=== PATIENT | female | born 1980 | race Caucasian/White ===

== ENCOUNTER 2022-09-01 10:10 | Emergency (ER) | payer SELFPAY ==
[2022-09-01 10:16] VITALS: BP 126/80; PULSE 128; RESP 20; TEMP 36.7; O2SAT 97
--- NOTE | 2022-09-01 10:29 | ED_ITS ---
HPI - Nausea/Vomiting/Diarrhea General: Chief complaint: Nausea/Vomiting/Diarrhea Stated complaint: n/v/d Time Seen by Provider: 09/01/22 10:24 Source: patient Mode of arrival: ambulatory Limitations: no limitations History of Present Illness: Patient is a nice 42-year-old female presents to ED today with complaint of nausea, vomiting, diarrhea, and abdominal cramping beginning around 4 AM this morning. Patient states her and several members of her family have recently been ill with similar symptoms. She is reporting diffuse body aches. No fevers. No known poor food exposures. She states she has had approximately 5 episodes of nonbloody emesis/nonbloody diarrhea. She states when she vomits she will soil herself with diarrhea. She states abdominal cramping is intermittent and present prior to emesis/defecation but resolves afterwards. MD elicited complaint: nausea, vomiting, diarrhea and abdominal pain Onset (ago): hour(s) Description of diarrhea: watery Associated nausea: Yes Associated abdominal pain: Yes (cramping) Location of pain: Diffuse Pain consistency: intermittent Quality: cramping Relieving factors: none Context: sick contacts Associated symtoms: Reports nausea; Denies change in vision, chest pain, dizziness, dysuria or headache(s) Review of Systems Const: Reports: body aches; Denies: fever(s) or chills Eyes: Denies: change in vision Card: Denies: chest pain Resp: Denies: dyspnea GI: Reports: abdominal pain (cramping; improves after emesis/defecation), n ausea, vomiting, diarrhea and GI cramping; Denies: hematemesis : Denies: flank pain or dysuria Musc: Denies: neck pain, back pain, extremity pain or joint pain Skin/Breast: Denies: rash Neuro: Denies: headache(s) or dizziness Physical Exam Const: COMMON NORMALS: average body habitus, patient oriented x3, no limitations, healthy appearing, alert and well nourished GENERAL APPEARANCE: cooperative and ill appearing ORIENTATION/CONSCIOUSNESS: Yes awake, Yes oriented to person, Yes oriented to place and Yes oriented to time OTHER: was overheard actively vomiting in bathroom; RN alerted me that she had soiled herself with diarrhea in triage HENMT: COMMON NORMALS: normocephalic and atraumatic HEAD & SCALP: normal to inspection, normocephalic and atraumatic Eye: COMMON NORMALS: no scleral icterus Resp: COMMON NORMALS: normal respiratory effort and clear to auscultation bilaterally AUSCULTATION: clear to auscultation bilaterally Cardio: COMMON NORMALS: regular rate and regular rhythm RATE: regular rate RHYTHM: regular rhythm GI: COMMON NORMALS: Normal to inspection, nondistended, normoactive bowel sounds present, Soft to palpation, non-tender, No hepatosplenomegaly present and no masses INSPECTION: Yes normal to inspection AUSCULTATION: Yes Hyperactive bowel sounds present PALPATION: Yes Soft to palpation, No Guarding due to palpation present (GI), No Rigid due to palpation and Yes No hepatosplenomegaly present : COMMON NORMALS: Yes no CVA tenderness BLADDER/KIDNEY EXAM: Yes no CVA tenderness Back/Pelvis: COMMON NORMALS: no CVA tenderness Neuro: GABRIELE COMA SCALE: document GCS findings [place] coma scale eye opening: Spontaneous [place] coma scale verbal response: Orientated [place] coma scale motor response: Obey commands [place] coma scale total score: 15 COMMON NORMALS: patient oriented x3 SENSORIUM/ORIENTATION: Yes alert, Yes oriented to person, Yes oriented to place and Yes oriented to time Skin: COMMON NORMALS: no rashes or lesions noted GENERAL SKIN EXAM: no rashes or lesions noted Course Vital Signs: Vital signs: Vital Signs Temperature 98.0 F 09/01/22 10:16 Pulse Rate 79 09/01/22 11:56 Respiratory Rate 16 09/01/22 11:56 Blood Pressure 102/79 09/01/22 11:56 Pulse Oximetry 97 09/01/22 11:56 Oxygen Delivery Mt thod 09/01/22 11:56 MDM - Nausea/Vomiting/Diarrhea Medical Decision Making History and physical exam consistent with a gastroenteritis. Patient was initially tachycardic upon arrival but this resolved after IV fluids. Her lab work overall is fairly unremarkable. UA was contaminated. She has not had any further episodes of vomiting or diarrhea after my initial assessment. Nausea was controlled prior to discharge. Discussed conservative treatment at home. Return ED precautions given. Differential Diagnosis Likely gastroenteritis Medical Records I reviewed the patient's medical records. Lab Data I reviewed the patient's lab results. 09/01/22 11:12 09/01/22 11:12 Laboratory Results WBC 9.2 10^3/uL (4.0-10.0) 09/01/22 11:12 RBC 4.79 10^6/uL (4.1-5.3) 09/01/22 11:12 Hgb 14.1 g/dL (11.5-15.3) 09/01/22 11:12 Hct 43.5 % (37.0-47.0) 09/01/22 11:12 MCV 90.8 fl (81-99) 09/01/22 11:12 MCH 29.4 pg (28.0-34.0) 09/01/22 11:12 MCHC 32.4 g/dL (30.0-36.0) 09/01/22 11:12 RDW 13.2 % (12.1-15.1) 09/01/22 11:12 Plt Count 264 10^3/cmm (130-400) 09/01/22 11:12 MPV 10.0 fL (7.4-10.4) 09/01/22 11:12 Neut % (Auto) 92.2 % 09/01/22 11:12 Lymph % (Auto) 3.7 % 09/01/22 11:12 Pepin % (Auto) 3.2 % 09/01/22 11:12 Eos % (Auto) 0.7 % 09/01/22 11:12 Baso % (Auto) 0.0 % 09/01/22 11:12 Neut # (Auto) 8.47 10^3/uL (1.8-7.7) H 09/01/22 11:12 Lymph # (Auto) 0.3 10^3/uL (0.8-4.8) L 09/01/22 11:12 Pepin # (Auto) 0.3 10^3/uL (0.2-0.9) 09/01/22 11:12 Eos # (Auto) 0.1 10^3/uL (0.0-0.8) 09/01/22 11:12 Baso # (Auto) 0.0 10^3/uL (0.0-0.1) 09/01/22 11:12 Nucleated RBC % (auto) 0 % 09/01/22 11:12 Nucleated RBCs # 0.0 /100WBC 09/01/22 11:12 Sodium 133 mmol/L (136-145) L 09/01/22 11:12 Potassium 4.4 mmol/L (3.5-5.1) 09/01/22 11:12 Chloride 102 mmol/L (98-107) 09/01/22 11:12 Carbon Dioxide 21 mmol/L (22-29) L 09/01/22 11:12 Anion Gap 14.4 (5-19) 09/01/22 11:12 BUN 9 mg/dL (6-20) 09/01/22 11:12 Creatinine 0.9 mg/dL (0.5-0.9) 09/01/22 11:12 GFR Calculation 69.3 mL/min (90-130) L 09/01/22 11:12 Glucose 112 mg/dL (65-115) 09/01/22 11:12 Calculated Osmolality 275 mOsm/kg (285-295) L 09/01/22 11:12 Calcium 8.7 mg/dL (8.5-10.5) 09/01/22 11:12 Total Bilirubin 0.4 mg/dL (0.15-1.2) 09/01/22 11:12 AST 13 U/L (0-32) 09/01/22 11:12 ALT 12 U/L (0-33) 09/01/22 11:12 Alkaline Phosphatase 78 U/L (35-105) 09/01/22 11:12 Total Protein 7.0 g/dL (6.6-8.7) 09/01/22 11:12 Albumin 3.9 g/dL (3.5-5.2) 09/01/22 11:12 Globulin 3.1 g/dL (1.3-4.6) 09/01/22 11:12 Lipase 26 U/L (13-60) 09/01/22 11:12 Urine Color Yellow (Yellow) 09/01/22 11:50 Urine Appearance Cloudy (CLEAR) A 09/01/22 11:50 Urine pH 8 (5-7) H 09/01/22 11:50 Ur Specific [place] 1.010 (1.005-1.030) 09/01/22 11:50 Urine Protein Neg (Negative) 09/01/22 11:50 Urine Glucose (UA) Norm (Normal) 09/01/22 11:50 Urine Ketones Negative (Negative) 09/01/22 11:50 Urine Blood Neg (Negative) 09/01/22 11:50 Urine Nitrate Negative (Negative) 09/01/22 11:50 Urine Bilirubin Neg (Negative) 09/01/22 11:50 Prot Sulfosalicylic Acd Negative (Negative) 09/01/22 11:50 Urine Urobilinogen Norm mg/dL (Negative) 09/01/22 11:50 Ur Leukocyte Esterase Negative (Negative) 09/01/22 11:50 Urine RBC None /hpf (0-2) 09/01/22 11:50 Urine WBC 5-10 /hpf (0-5) H 09/01/22 11:50 Ur Squamous Epith Cells 15-25 /hpf (0-5) H 09/01/22 11:50 Amorphous Sediment Not Reportable 09/01/22 11:50 Urine Bacteria 2+ /hpf (NONE) H 09/01/22 11:50 Urine Mucus 1+ /hpf 09/01/22 11:50 Discharge Plan Discharge Patient Disposition: Home Clinical Impression: Gastroenteritis Condition: Stable Prescriptions: New promethazine 50 mg tablet 50 mg PO TID PRN (Reason: nausea and vomiting) Qty: 10 0RF Discharge Orders: Discharge ED (Routine); Ordered 09/01/22 Ordered By: Meghan Drummond Patient Instructions: Gastroenteritis (DC), Acute Nausea and Vomiting (DC) Stand Alone Forms: Work/School Release Coding Level of Care Code 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
[2022-09-01] MEDS: ondansetron 2 mg/ML SDV 2 mL 4 MG IVP (11:21)
[2022-09-01] MEDS: sodium chloride 0.9% 1,000 ML 999 ML IV (11:21)
[2022-09-01 11:29] LABS: Eosinophils # 0.1 10^3/uL (0.0-0.8); Eosinophils % 0.7 %; Hematocrit 43.5 % (37.0-47.0); Hemoglobin 14.1 g/dL (11.5-15.3); Lymphocytes # 0.3 10^3/uL (0.8-4.8); Lymphocytes % 3.7 %; Mean Corpuscular HGB Conc 32.4 g/dL (30.0-36.0); Mean Corpuscular Hemoglobin 29.4 pg (28.0-34.0); Mean Corpuscular Volume 90.8 fl (81-99); Monocytes # 0.3 10^3/uL (0.2-0.9); Monocytes % 3.2 %; Neutrophils # 8.47 10^3/uL (1.8-7.7); Neutrophils % 92.2 %; Nucleated Red Blood Cells % 0 %; Platelet Count 264 10^3/cmm (130-400); Red Blood Count 4.79 10^6/uL (4.1-5.3); Red Cell Distribution Width 13.2 % (12.1-15.1); White Blood Count 9.2 10^3/uL (4.0-10.0)
[2022-09-01 11:46] LABS: Alanine Aminotransferase 12 U/L (0-33); Albumin Level 3.9 g/dL (3.5-5.2); Alkaline Phosphatase 78 U/L (35-105); Anion Gap 14.4 (5-19); Aspartate Amino Transferase 13 U/L (0-32); Blood Urea Nitrogen 9 mg/dL (6-20); Calcium 8.7 mg/dL (8.5-10.5); Carbon Dioxide 21 mmol/L (22-29); Chloride 102 mmol/L (98-107); Globulin 3.1 g/dL (1.3-4.6); Glomerular Filtration Rate 69.3 mL/min (90-130); Glucose 112 mg/dL (65-115); Lipase 26 U/L (13-60); Osmolality Calculated 275 mOsm/kg (285-295); Potassium 4.4 mmol/L (3.5-5.1); Sodium 133 mmol/L (136-145); Total Bilirubin 0.4 mg/dL (0.15-1.2)
[2022-09-01 11:47] VITALS: BP 102/74; PULSE 72; RESP 16; O2SAT 95
[2022-09-01 11:56] VITALS: BP 102/79; PULSE 79; RESP 16; O2SAT 97
[2022-09-01] MEDS: metoclopramide 5 mg/mL SDV 2 mL 10 MG IVP (11:59)
[2022-09-01 12:14] LABS: Add Urine Microscopic? YES; Bilirubin Urine Neg (Negative); Blood Urine Neg (Negative); Glucose Urine UA Norm (Normal); Ketones Urine Negative (Negative); Leukocyte Esterase Urine Negative (Negative); Nitrate Urine Negative (Negative); Protein Urine Neg (Negative); Sulfosalicylic Acid Urine Negative (Negative); Urine Appearance Cloudy (CLEAR); Urine Color Yellow (Yellow); Urobilinogen Urine Norm (Negative); pH Urine 8 (5-7)
[2022-09-01 12:15] LABS: Add Urine Culture? No; Bacteria Urine 2+ /hpf; Mucus Urine 1+ /hpf; Squamous Epithelial Cell Urine 15-25 /hpf (0-5)
[2022-09-01] MEDS: promethazine 25 mg/mL SDV 1 mL 50 MG IM (12:47)
--- NOTE | 2022-09-05 14:59 | DCPLANNER ---
piping manager called patient due to no primary care physician - patient declines at this time
== END 2022-09-01 12:54 | disposition home or self-care (01) ==
PROVIDERS: Emergency Provider Physician Assistant
DX: K52.9 Noninfective gastroenteritis and colitis, unspecified (principal)
CPT/HCPCS: 80053; 81001; 83690; 85025; 96372; 96374; 96375; 99284; J2405; J2550; J2765; J7030

== ENCOUNTER 2023-03-04 13:04 | Emergency (ER) | payer SELFPAY ==
--- NOTE | 2023-03-04 13:05 | XRR_ITS ---
PROCEDURE INFORMATION: Exam: XR Chest Exam date and time: 03/04/2023 1:23 PM Age: 42 years old Clinical indication: Cough and fever TECHNIQUE: Imaging protocol: Radiologic exam of the chest. Views: 1 view. COMPARISON: No relevant prior studies available. FINDINGS: Lungs: Unremarkable. No consolidation. Pleural spaces: Unremarkable. No pleural effusion. No pneumothorax. Heart/Mediastinum: Unremarkable. No cardiomegaly. Bones/joints: Unremarkable. XR/XR chest 1V portable [id number] IMPRESSION: No acute findings.
[2023-03-04 13:12] VITALS: BP 134/84; PULSE 91; RESP 18; TEMP 36.7; O2SAT 97; BMI 34.9
[2023-03-04 13:23] VITALS: O2SAT 97
--- NOTE | 2023-03-04 13:31 | W.ED.URI ---
HPI - URI/Sore Throat General: Chief Complaint: COVID symptoms Stated Complaint: fever/body aches/chest congestion Time Seen by Provider: 03/04/23 13:08 Source: patient and family Mode of arrival: ambulatory Limitations: no limitations History of Present Illness: Patient is a 42-year-old female presents to ED today with a complaint of subjective fevers, chills, body aches, scratchy throat , nasal/chest congestion, and cough. Symptoms started yesterday. No known sick contacts. She is not having any significant shortness of breath/difficulty breathing or chest pain. Denies abdominal pain, nausea, vomiting, diarrhea. She arrives with stable vital signs. MD elicited complaint: fever (subjective), cough, sore throat, nasal congestion and sinus pain Onset (ago): day(s) (yesterday) Consistency: constant Severity: moderate Description of mucous: clear Able to tolerate fluids by mouth: Yes Relieving factors: nothing Associated symptoms: Reports chills, congestion, cough, fever(s), myalgias, nasal congestion, sinus pain and sore throat; Deny abdominal pain, chest pain, diarrhea, ear or mastoid pain, headache(s), nausea or vomiting Treatments prior to arrival: none Review of Systems Const: Reports: fever(s), chills and body aches; Denies: change in appetite, change in weight, fatigue or malaise Eyes: Denies: change in vision, blurry vision, photophobia, eye discomfort, eye discharge, floaters or seeing flashes ENMT: Reports: throat pain, odynophagia, nasal discharge, nasal congestion and sinus pain; Denies: ear or mastoid pain Card: Denies: chest pain, palpitations, irregular heart rhythm, edema, lightheadedness, syncope or pre-syncope Resp: Reports: non-productive cough, pain on inspiration and chest congestion; Denies: wheezing or hemoptysis GI: Denies: abdominal pain, nausea, vomiting or diarrhea Musc: Denies: neck pain, back pain, extremity pain or joint pain Skin/Breast: Denies: rash Neuro: Denies: headache(s), numbness in extremities, weakness in extremities, sensory changes or dizziness [facility] ED PFSH: Medical History (Updated 03/04/23 @ 14:49 by RENETTA Alvarez) Psychiatric care Physical Exam Const: COMMON NORMALS: no acute distress, average body habitus, patient oriented x3, no limitations, healthy appearing, alert and well nourished GENERAL APPEARANCE: cooperative ORIENTATION/CONSCIOUSNESS: Yes awake, Yes oriented to person, Yes oriented to place and Yes oriented to time HENMT: COMMON NORMALS: normocephalic, atraumatic, hearing grossly normal bilaterally, external ears normal, EAC's normal, TM's normal bilaterally, Normal external nose present, Normal nasal mucous membranes and turbinates present, moist oral mucous membranes and oropharynx normal HEAD & SCALP: normal to inspection, normocephalic and atraumatic FACE & SINUS: normal facial exam and sinus tenderness NOSE: Normal external nose present and Normal nasal mucous membranes and turbinates present EXTERNAL EAR: Yes external ears normal EXTERNAL AUDITORY CANAL: EAC's normal TYMPANIC MEMBRANE: TM's normal bilaterally MOUTH: Normal oral and palatal mucosa present, lip normal and tongue normal THROAT: posterior oropharynx normal, tonsils normal and uvula midline Eye: COMMON NORMALS: Equal, round and reactive pupils present, EOMs intact bilaterally and conjunctivae normal GENERAL EYE: appearance normal, both eyes and all related structures CONJUNCTIVA: Yes conjunctivae normal PUPIL: Yes Equal, round and reactive pupils present Neck/C-Spine: COMMON NORMALS: full ROM, no lymphadenopathy, no meningeal signs and no JVD Chest: COMMONS NORMALS: normal inspection of the chest and normal palpation of entire chest wall Resp: COMMON NORMALS: normal respiratory effort and clear to auscultation bilaterally AUSCULTATION: clear to auscultation bilaterally Cardio: COMMON NORMALS: no JVD, regular rate and regular rhythm RATE: regular rate RHYTHM: regular rhythm Extremity: GENERAL: Yes normal exam except as noted Neuro: BRIAN COMA SCALE: document GCS findings [place] coma scale eye opening: Spontaneous [place] coma scale verbal response: Orientated [place] coma scale motor response: Obey commands [place] coma scale total score: 15 COMMON NORMALS: patient oriented x3, moves all extremities, no focal motor deficits, no sensory deficits noted and gait normal SENSORIUM/ORIENTATION: Yes alert, Yes oriented to person, Yes oriented to place and Yes oriented to time MENINGEAL SIGNS: Yes no meningeal signs Skin: COMMON NORMALS: no rashes or lesions noted GENERAL SKIN EXAM: no rashes or lesions noted Course Vital Signs: Vital signs: Vital Signs Temperature 98.1 F 03/04/23 13:12 Pulse Rate 91 03/04/23 13:12 Respiratory Rate 18 03/04/23 13:12 Blood Pressure 134/84 03/04/23 13:12 Pulse Oximetry 97 03/04/23 13:23 Oxygen Delivery Me thod Room Air 03/04/23 13:23 MDM - URI/Sore Throat Medical Decision Making Patient appears in no acute distress. Her vital signs are stable. CXR is normal. Influenza/COVID are negative. She will be allowed discharge with instructions for conservative therapies at home. Lab Data Radiology Impressions Chest X-Ray 03/04/23 13:05 IMPRESSION: No acute findings. Laboratory Results Influenza Type A Ag Negative (Negative) 03/04/23 13:58 Influenza Type B Ag Negative (Negative) 03/04/23 13:58 SARS-CoV-2 Ag (Rapid) Negative (Negative) 03/04/23 13:24 All radiology interpretation(s) finalized by discharge Discharge Plan Discharge Patient Disposition: Home Clinical Impression: Viral upper respiratory tract infection with cough Condition: Stable Prescriptions: No Action promethazine 50 mg tablet 50 mg PO TID PRN (Reason: nausea and vomiting) Qty: 10 0RF Discharge Orders: Discharge ED (Routine); Ordered 03/04/23 Ordered By: Meghan Drummond Patient Instructions: Upper Respiratory Infection (DC) Stand Alone Forms: Work/School Release Coding Level of Care Code 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
[2023-03-04 14:36] LABS: Influenza A by IFA Negative (Negative); Influenza B by IFA Negative (Negative)
[2023-03-04 14:36] LABS: SARS Covid-2 Antigen Negative (Negative)
== END 2023-03-04 15:18 | disposition home or self-care (01) ==
PROVIDERS: Emergency Medicine; Emergency Provider Physician Assistant
DX: J06.9 Acute upper respiratory infection, unspecified (principal); R05.9 Cough, unspecified; Z11.52 Encounter for screening for COVID-19
CPT/HCPCS: 71045; 87426; 87804; 99284

== ENCOUNTER 2023-07-24 08:59 | Emergency (ER) | payer SELFPAY ==
[2023-07-24 09:14] VITALS: BP 119/82; PULSE 82; RESP 18; TEMP 36.7; O2SAT 97; BMI 39.0
--- NOTE | 2023-07-24 10:04 | W.ED.BACK ---
HPI - Back Pain/Injury General: Chief Complaint: Back Pain/Injury Stated Complaint: lower back pains Time Seen by Provider: 07/24/23 09:11 Source: patient Mode of arrival: ambulatory Limitations: no limitations History of Present Illness: 43-year-old female states she has chronic back pain she states been having increasing pain on the right side of her back. She states that she had lost her insurance sometime ago used to be on gabapentin states that she just got new insurance still does not have a provider she is try to get into a specialist. She denies any bowel or bladder incontinence rates her pain a 5 out of 10 currently Associated symptoms: Deny abdominal pain, chills, fever(s), nausea or vomiting Review of Systems Const: Denies: fever(s), chills, body aches or change in appetite Eyes: Denies: blurry vision or eye discomfort ENMT: Denies: throat pain or dental pain Card: Denies: chest pain Resp: Denies: dyspnea GI: Denies: abdominal pain, nausea, vomiting or diarrhea Musc: Reports: back pain; Denies: neck pain Skin/Breast: Denies: rash Neuro: Denies: headache(s) PFS ED PFSH: Medical History Psychiatric care Physical Exam Const: COMMON NORMALS: no acute distress and patient oriented x3 HENMT: COMMON NORMALS: normocephalic and atraumatic HEAD & SCALP: normocephalic and atraumatic Eye: COMMON NORMALS: conjunctivae normal CONJUNCTIVA: Yes conjunctivae normal Neck/C-Spine: COMMON NORMALS: supple Chest: COMMONS NORMALS: normal inspection of the chest Back/Pelvis: OTHER: Tenderness to right lower back no midline tenderness no saddle anesthesia Extremity: COMMON NORMALS: normal to inspection Neuro: COMMON NORMALS: patient oriented x3 Psych: COMMON NORMALS: mental status grossly normal Skin: COMMON NORMALS: no rashes or lesions noted GENERAL SKIN EXAM: no rashes or lesions noted Course Vital Signs: Vital signs: Vital Signs Temperature 98.1 F 07/24/23 09:14 Pulse Rate 82 07/24/23 09:14 Respiratory Rate 18 07/24/23 10:09 Blood Pressure 119/82 07/24/23 09:14 Pulse Oximetry 98 07/24/23 10:09 Oxygen Delivery Me thod Room Air 07/24/23 09:14 MDM - Back Pain/Injury Medical Decision Making Patient presents here with back pain has been chronic in nature she has no signs of epidural abscess or cord compression did give her Decadron along with morphine here will prescribe her gabapentin along with muscle relaxants she is to follow-up with Dr. Sarah return if worsening. No radiology studies performed this visit Discharge Plan Discharge Patient Disposition: Home Clinical Impression: Low back pain Condition: Stable Prescriptions: New methocarbamol 750 mg tablet 750 mg PO Q6H PRN (Reason: spasms) Qty: 20 0RF Naprosyn 500 mg tablet 500 mg PO BID PRN (Reason: pain) Qty: 20 0RF gabapentin 300 mg capsule 300 mg PO BID Qty: 60 0RF No Action promethazine 50 mg tablet 50 mg PO TID PRN (Reason: nausea and vomiting) Qty: 10 0RF Discharge Orders: Discharge ED (Routine); Ordered 07/24/23 Ordered By: Homero Doe Referrals: Young Sarah DO [Physician] - 1-3 days Discharge Diet: Advance as tolerated Discharge Activity: Resume usual activity Patient Instructions: Back Pain (ED) Stand Alone Forms: Work/School Release Coding Level of Care Code ED Director Internal Audit for Trent Parsons
[2023-07-24 10:09] VITALS: RESP 18; O2SAT 98
[2023-07-24] MEDS: morphine 4 mg/mL SDV 1 mL IM (10:09)
--- NOTE | 2023-07-24 10:09 | DCPLANNER ---
A message was sent to ortho for back pain on 07/24/23 at 1009. [facility] to contact patient.
[2023-07-24] MEDS: dexamethasone 10 mg/mL INJ IM (10:10)
== END 2023-07-24 10:24 | disposition home or self-care (01) ==
PROVIDERS: Emergency Provider Emergency Medicine
DX: M54.50 Low back pain, unspecified (principal)
CPT/HCPCS: 96372; 99284; J1100; J2270

== ENCOUNTER 2023-08-06 08:02 | Outpatient (CLI) | payer OTHER, SELFPAY ==
--- NOTE | 2023-08-06 08:16 | US_ITS ---
WS: [id number] US pelv w/transvag [id number] HISTORY: HIRSUTISM IRREGULAR MENSES COMPARISON: None available. Uterus: 9.9 cm x 5.8 cm x 4.3 cm. Normal size anteverted uterus. No fibroid or mass. scar is noted along the anterior lower uterine segment. Endometrium: 0.9 cm. Normal. Right ovary: 2.8 cm x 2.3 cm x 2.3 cm. Normal size and vascularity, no cystic or solid masses. A few small follicles. Left ovary: 2.0 cm x 1.8 cm x 1.7 cm. Normal size and vascularity, no cystic or solid masses. A few s mall follicles. No free fluid in the cul-de-sac. IMPRESSION: 1. Normal endometrium. 2. scar along the anterior lower uterine segment. 3. Normal ovaries.
== END 2023-08-06 08:03 | disposition home or self-care (01) ==
LOC: RAD 08:02
PROVIDERS: Visit Provider Family Medicine
DX: L68.0 Hirsutism (principal); N92.6 Irregular menstruation, unspecified; Z98.891 History of uterine scar from previous surgery
CPT/HCPCS: 76830; 76856

== ENCOUNTER 2023-10-06 10:04 | Emergency (ER) | payer OTHER, SELFPAY ==
[2023-10-06 10:05] VITALS: BP 112/64; PULSE 72; RESP 18; TEMP 36.7; O2SAT 98; BMI 43.4
--- NOTE | 2023-10-06 10:18 | ED_ITS ---
HPI - Chest Pain 2 General: Chief Complaint: Chest Pain Stated Complaint: cp Time Seen by Provider: 10/06/23 10:06 Source: patient and EMS Mode of arrival: EMS Limitations: no limitations History of Present Illness: Patient is a 43-year-old female presents to ED today for evaluation of chest pain. 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 She reports pain is mainly to her epigastric/substernal region and radiated to her back. She states her breathing increased and her arms started to go numb. She states her [id number]-ote took her blood pressure and it was noted to be 140s/90s which she states is elevated for her. Patient states she does take nitro that has been prescribed to her from her PCP for chest pain. Patient states she does not have any diagnosed cardiac conditions and has never had a stress test. Patient states she took 2 nitros at home and EMS administered a third one and route. Upon initial presentation to the emergency department she states all of her chest pain has subsided and is completely asymptomatic. MD complaint: chest pain Onset (ago): hour(s) Timing of current episode: now resolved Prior episodes: Yes Onset: during rest Pain location: substernal and epigastric Pain radiation: back Severity: severe Quality: sharp Relieving factors: nitroglycerin Exacerbating factors: nothing Associated symptoms: Deny abdominal pain, dyspnea, fever(s), nausea, palpitations, syncope or vomiting Treatment prior to arrival: nitroglycerin Risk Factors: Thoracic aortic dissection risk factors: none Review of Systems 2 Const: Denies: fever(s), chills, body aches, fatigue or malaise Eyes: Denies: change in vision or blurry vision Card: Reports: chest pain (subsided now); Denies: palpitations, irregular heart rhythm, edema, swelling of feet/ankles, lightheadedness, syncope, pre-syncope, dyspnea on exertion, orthopnea, leg pain with exertion or acrocyanosis Resp: Denies: dyspnea, productive cough or pain on inspiration GI: Denies: abdominal pain, nausea, vomiting, heartburn or diarrhea : Denies: dysuria Musc: Reports: back pain (felt like pain radiated to her back-subsided now); Denies: neck pain, extremity pain, extremity swelling or joint pain Skin/Breast: Denies: rash Neuro: Denies: headache(s), numbness in extremities, weakness in extremities, sensory changes or dizziness PFSH ED 2 PFSH: Medical History Psychiatric care Physical Exam 2 Const: COMMON NORMALS: no acute distress, patient oriented x3, no limitations, alert and well nourished GENERAL APPEARANCE: cooperative NUTRITIONAL APPEARANCE: obese ORIENTATION/CONSCIOUSNESS: Yes awake, Yes oriented to person, Yes oriented to place and Yes oriented to time HENMT: COMMON NORMALS: normocephalic and atraumatic HEAD & SCALP: n ormocephalic and atraumatic Neck/C-Spine: COMMON NORMALS: full ROM, no lymphadenopathy, supple and no meningeal signs Chest: COMMONS NORMALS: normal inspection of the chest and normal palpation of entire chest wall Resp: COMMON NORMALS: normal respiratory effort and clear to auscultation bilaterally AUSCULTATION: clear to auscultation bilaterally Cardio: COMMON NORMALS: regular rate and regular rhythm RATE: regular rate RHYTHM: regular rhythm GI: COMMON NORMALS: Normal to inspection, nondistended, normoactive bowel sounds present, Soft to palpation, non-tender, No hepatosplenomegaly present and no masses PALPATION: Yes Soft to palpation and Yes No hepatosplenomegaly present : COMMON NORMALS: Yes no CVA tenderness BLADDER/KIDNEY EXAM: Yes no CVA tenderness Back/Pelvis: COMMON NORMALS: no CVA tenderness and thoracic and lumbar spine normal to inspection Extremity: COMMON NORMALS: normal to inspection GENERAL: Yes normal exam except as noted Neuro: BRIAN COMA SCALE: document GCS findings Brian coma scale eye opening: Spontaneous [place] coma scale verbal response: Orientated Brian coma scale motor response: Obey commands Brian coma scale total score: 15 COMMON NORMALS: patient oriented x3 SENSORIUM/ORIENTATION: Yes alert, Yes oriented to person, Yes oriented to place and Yes oriented to time MENINGEAL SIGNS: Y es no meningeal signs Skin: COMMON NORMALS: no rashes or lesions noted GENERAL SKIN EXAM: no rashes or lesions noted Course 2 Vital Signs: Vital signs: Vital Signs Temperature 98.1 F 10/06/23 10:05 Pulse Rate 68 10/06/23 12:29 Respiratory Rate 21 H 10/06/23 12:29 Blood Pressure 125/74 10/06/23 12:29 Pulse Oximetry 97 10/06/23 12:29 Oxygen Delivery Me thod Room Air 10/06/23 12:29 MDM - Chest Pain Medical Decision Making Patient is a 43-year-old female here with chest pain that began earlier today at rest. Upon initial presentation patient had received 3 nitros (two by herself and one by EMS) and was completely asymptomatic. Chest pain never returned while here in the emergency department. Her baseline and repeat EKGs are nonischemic. Baseline and 2-hour troponin are normal. Remainder of labs are unremarkable. She has no known cardiac disease-never had an outpatient stress test/echo. She is prescribed nitro by her primary care provider. Recommend she speak to PCP in regards to possibly getting an outpatient stress test for further evaluation of her chest discomfort. Return to ED precautions given. Medical Records I reviewed the patient's medical records. Lab Data I reviewed the patient's lab results. 10/06/23 09:42 10/06/23 09:42 Radiology Impressions Chest X-Ray 10/06/23 10:19 IMPRESSION: No acute findings. Laboratory Results WBC 7.95 10^3/uL (3.29-11.43) 10/06/23 09:42 RBC 5.14 10^6/uL (3.85-5.65) 10/06/23 09:42 Hgb 15.40 g/dL (11.27-16.99) 10/06/23 09:42 Hct 45.5 % (36-47) 10/06/23 09:42 MCV 88.5 fl (85-98) 10/06/23 09:42 MCH 30.0 pg (27-33) 10/06/23 09:42 MCHC 33.8 g/dL (30-55) 10/06/23 09:42 RDW 13.4 % (12.1-15.1) 10/06/23 09:42 Plt Count 289 10^3/cmm (157-399) 10/06/23 09:42 MPV 10.2 fL (7.4-10.4) 10/06/23 09:42 Neut % (Auto) 74.9 % 10/06/23 09:42 Lymph % (Auto) 18.2 % 10/06/23 09:42 [place] % (Auto) 5.7 % 10/06/23 09:42 Eos % (Auto) 1.0 % 10/06/23 09:42 Baso % (Auto) 0.1 % 10/06/23 09:42 Neut # (Auto) 5.95 10^3/uL (1.8-7.7) 10/06/23 09:42 Lymph # (Auto) 1.5 10^3/uL (0.8-4.8) 10/06/23 09:42 [place] # (Auto) 0.5 10^3/uL (0.2-0.9) 10/06/23 09:42 Eos # (Auto) 0.1 10^3/uL (0.0-0.8) 10/06/23 09:42 Baso # (Auto) 0.0 10^3/uL (0.0-0.1) 10/06/23 09:42 Nucleated RBC % (auto) 0 % 10/06/23 09:42 Nucleated RBCs # 0.0 /100WBC 10/06/23 09:42 Sodium 135 mmol/L (136-145) L 10/06/23 09:42 Potassium 3.9 mmol/L (3.5-5.1) 10/06/23 09:42 Chloride 100 mmol/L (98-107) 10/06/23 09:42 Carbon Dioxide 19 mmol/L (22-29) L 10/06/23 09:42 Anion Gap 19.9 (5-19) H 10/06/23 09:42 BUN 11 mg/dL (6-20) 10/06/23 09:42 Creatinine 0.9 mg/dL (0.5-0.9) 10/06/23 09:42 GFR Calculation 69.0 mL/min (90-130) L 10/06/23 09:42 Glucose 154 mg/dL (65-115) H 10/06/23 09:42 Calculated Osmolality 282 mOsm/kg (285-295) L 10/06/23 09:42 Calcium 9.2 mg/dL (8.5-10.5) 10/06/23 09:42 Total Bilirubin 0.3 mg/dL (0.15-1.2) 10/06/23 09:42 AST 14 U/L (0-32) 10/06/23 09:42 ALT 13 U/L (0-33) 10/06/23 09:42 Alkaline Phosphatase 91 U/L (35-105) 10/06/23 09:42 Troponin T Baseline < 6 ng/L (0-10) 10/06/23 09:42 Troponin T 120 Minute 6.00 ng/L (0-10) 10/06/23 12:19 Delta Troponin T 0.83521 ABS# (0-10) 10/06/23 12:19 Total Protein 7.9 g/dL (6.6-8.7) 10/06/23 09:42 Albumin 4.4 g/dL (3.5-5.2) 10/06/23 09:42 Globulin 3.5 g/dL (1.3-4.6) 10/06/23 09:42 HCG, Qual Negative (Negative) 10/06/23 09:42 All radiology interpretation(s) finalized by discharge Discharge Plan Discharge Patient Disposition: Home Clinical Impression: Atypical chest pain Condition: Stable Prescriptions: No Action methocarbamol 750 mg tablet 750 mg PO Q6H PRN (Reason: spasms) Qty: 20 0RF naproxen [Naprosyn] 500 mg tablet 500 mg PO BID PRN (Reason: pain) Qty: 20 0RF metformin 500 mg tablet 500 mg PO BID fluticasone propion-salmeterol 250-50 mcg/dose blister with device 2 ea INHALATION BID cetirizine 10 mg tablet 10 mg PO DAILY isosorbide mononitrate 30 mg tablet extended release 24 hr 30 mg PO DAILY gabapentin 400 mg capsule 400 mg PO BID spironolactone 25 mg tablet 25 mg PO QAM oxybutynin chloride 5 mg tablet extended release 24hr 5 mg PO DAILY fluoxetine 20 mg capsule 20 mg PO DAILY fluticasone propionate 50 mcg/actuation spray,suspension 1 spray INTRANASAL DAILY Nitrostat 0.4 mg Tablet, Sublingual 0.4 mg SUBLINGUAL Q5M PRN (Reason: Chest Pain) Rx Instructions: do not exceed 3 doses per episode Discharge Orders: Discharge ED (Routine); Ordered 10/06/23 Ordered By: Meghan Drummond Referrals: Deion Noel MD [Primary Care Provider] - Patient Instructions: Chest Pain (DC) Activity Restrictions/Additional Instructions: As we discussed please talk to your primary care provider about the possible need for an outpatient cardiac stress test. You may return to the emergency department for severe shortness of breath, chest pain, difficulty breathing, lightheadedness/dizziness/passing out episodes, or any other concerns you may have. Coding Level of Care Code ED Health Information Specialist for Trent Parsons
[2023-10-06 10:19] VITALS: BP 112/64; PULSE 72; RESP 18; O2SAT 98
--- NOTE | 2023-10-06 10:19 | XRR_ITS ---
PROCEDURE INFORMATION: Exam: XR Chest Exam date and time: 10/06/2023 10:23 AM Age: 43 years old Clinical indication: Pain; Angina pectoris; Additional info: Chest pain TECHNIQUE: Imaging protocol: Radiologic exam of the chest. Views: 1 view. COMPARISON: CR XR chest 1V portable [id number] 03/04/2023 1:23 PM FINDINGS: Lungs: Unremarkable. No consolidation. Pleural spaces: Unremarkable. No pleural effusion. No pneumothorax. Heart/Mediastinum: Unremarkable. No cardiomegaly. Bones/joints: Unremarkable. XR/XR chest 1V portable [id number] IMPRESSION: No acute findings.
--- NOTE | 2023-10-06 10:19 | ECG_ITS ---
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 Measurements Intervals [place] Rate: 66 P: 39 ND: 157 QRS: 4 QRSD: 85 T: 67 QT: 395 QTc: 414 Interpretive Statements SINUS RHYTHM WITH SINUS ARRHYTHMIA POSSIBLE RIGHT VENTRICULAR CONDUCTION DELAY [RSR (QR) IN V1/V2] No previous ECG available for comparison Electronically Signed On 10-06-2023 17:46:36 CDT by Miguel Mendiola M.D. [email or web address] [email or web address]/store/[id number] f
[2023-10-06 10:34] LABS: Basophils % 0.1 %; Eosinophils # 0.1 10^3/uL (0.0-0.8); Hematocrit 45.5 % (36-47); Lymphocytes # 1.5 10^3/uL (0.8-4.8); Lymphocytes % 18.2 %; Mean Corpuscular HGB Conc 33.8 g/dL (30-55); Mean Corpuscular Volume 88.5 fl (85-98); Mean Platelet Volume 10.2 fL (7.4-10.4); Monocytes # 0.5 10^3/uL (0.2-0.9); Monocytes % 5.7 %; Neutrophils # 5.95 10^3/uL (1.8-7.7); Neutrophils % 74.9 %; Nucleated Red Blood Cells % 0 %; Platelet Count 289 10^3/cmm (157-399); Red Blood Count 5.14 10^6/uL (3.85-5.65); Red Cell Distribution Width 13.4 % (12.1-15.1); White Blood Count 7.95 10^3/uL (3.29-11.43)
[2023-10-06 10:52] LABS: HCG, Serum Qual Negative (Negative)
[2023-10-06 10:56] LABS: Alanine Aminotransferase 13 U/L (0-33); Albumin Level 4.4 g/dL (3.5-5.2); Alkaline Phosphatase 91 U/L (35-105); Anion Gap 19.9 (5-19); Aspartate Amino Transferase 14 U/L (0-32); Blood Urea Nitrogen 11 mg/dL (6-20); Calcium 9.2 mg/dL (8.5-10.5); Carbon Dioxide 19 mmol/L (22-29); Chloride 100 mmol/L (98-107); Creatinine Clr Calc Pharmacy 91.4357; Globulin 3.5 g/dL (1.3-4.6); Glucose 154 mg/dL (65-115); Osmolality Calculated 282 mOsm/kg (285-295); Potassium 3.9 mmol/L (3.5-5.1); Sodium 135 mmol/L (136-145); Total Bilirubin 0.3 mg/dL (0.15-1.2); Total Protein 7.9 g/dL (6.6-8.7); Troponin(5th) Baseline < 6 ng/L (0-10)
--- NOTE | 2023-10-06 12:25 | ECG_ITS ---
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 Measurements Intervals [place] Rate: 56 P: 44 MA: 146 QRS: 29 QRSD: 92 T: 56 QT: 412 QTc: 398 Interpretive Statements SINUS BRADYCARDIA WITH SINUS ARRHYTHMIA INCOMPLETE RIGHT BUNDLE BRANCH BLOCK [90+ ms QRS DURATION, TERMINAL R IN V1/V2, 40+ ms S IN I/aVL/V4/V5/V6] Compared to ECG 10/06/2023 10:14:39 Incomplete right bundle-branch block now present Sinus rhythm no longer present Electronically Signed On 10-06-2023 18:09:14 CDT by Miguel Mendiola M.D. [email or web address] medical [email or web address] medical specialty hospital [facility] [place].Cardiac Guard/store/[id number]
[2023-10-06 12:29] VITALS: BP 125/74; PULSE 68; RESP 21; O2SAT 97
[2023-10-06 12:42] LABS: Troponin 5 2HR Delta 0.00001 ABS# (0-10)
[2023-10-06 13:42] VITALS: BP 125/54; PULSE 71; RESP 16; O2SAT 98
[2023-10-06 13:43] VITALS: BP 125/54; PULSE 71; RESP 16; O2SAT 98
== END 2023-10-06 13:44 | disposition home or self-care (01) ==
PROVIDERS: Emergency Provider Physician Assistant; PCP Family Medicine
DX: R07.89 Other chest pain (principal); Z79.84 Long term (current) use of oral hypoglycemic drugs
CPT/HCPCS: 36415; 71045; 80053; 84484; 84703; 85025; 93005; 99285

== ENCOUNTER 2024-01-05 08:37 | Emergency (ER) | payer OTHER, SELFPAY ==
--- NOTE | 2024-01-05 08:42 | ECG_ITS ---
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 Measurements Intervals [place] Rate: 88 P: 57 WV: 134 QRS: -28 QRSD: 82 T: 50 QT: 368 QTc: 446 Interpretive Statements SINUS RHYTHM BORDERLINE LEFT AXIS DEVIATION [QRS AXIS < -20] Compared to ECG 10/06/2023 12:25:52 Sinus bradycardia no longer present Sinus arrhythmia no longer present Incomplete right bundle-branch block no longer present Electronically Signed On 01-06-2024 7:38:51 CDT by Riley Gonzalez M.D. [id number] f
--- NOTE | 2024-01-05 08:48 | ED_ITS ---
HPI - Nausea/Vomiting/Diarrhea 2 General: Chief complaint: Chest Pain Stated complaint: NVD Time Seen by Provider: 01/05/24 08:41 History of Present Illness: 43-year-old female presents emergency ro om with nausea and vomiting. She states she had some shortness of breath and some mild chest discomfort the nausea started today. She was previously taking isosorbide mononitrate. She denies any hematemesis or coffee-ground emesis. She has a history of COPD and diabetes mellitus she is on metformin for diabetes she also has a history of hyperlipidemia. Associated symtoms: Reports chest pain; Denies dysuria Related Data Home Medications Medication Instructions Recorded Confirmed cetirizine 10 mg tablet 10 mg PO DAILY 10/06/23 01/05/24 fluoxetine 20 mg capsule 20 mg PO DAILY 10/06/23 01/05/24 fluticasone 250 mcg-salmeterol 50 2 ea inhalation BID 10/06/23 01/05/24 mcg/dose blistr powdr for inhalation fluticasone propionate 50 1 spray intranasal DAILY 10/06/23 01/05/24 mcg/actuation nasal spray,suspension gabapentin 400 mg capsule 400 mg PO BID 10/06/23 01/05/24 isosorbide mononitrate 30 mg 30 mg PO DAILY 10/06/23 01/05/24 tablet,extended release 24 hr metformin 500 mg tablet 500 mg PO BID 10/06/23 01/05/24 nitroglycerin 0.4 mg sublingual 0.4 mg sublingual Q5M PRN Chest 10/06/23 01/05/24 tablet (Nitrostat) Pain oxybutynin chloride 5 mg 5 mg PO DAILY 10/06/23 01/05/24 tablet,extended release 24 hr spironolactone 25 mg tablet 25 mg PO QAM 10/06/23 01/05/24 albuterol sulfate 90 mcg/actuation 1 - 2 puff inhalation Q4H PRN 01/05/24 01/05/24 aerosol inhaler Shortness Of Breath Previous Rx's Medication Instructions Recorded methocarbamol 750 mg tablet 750 mg PO Q6H PRN spasms #20 tabs 07/24/23 naproxen 500 mg tablet (Naprosyn) 500 mg PO BID PRN pain #20 tabs 07/24/23 fluoxetine 20 mg capsule 20 mg PO DAILY #10 caps 01/05/24 fluticasone 250 mcg-salmeterol 50 1 inh inhalation BID #60 ea 01/05/24 mcg/dose blistr powdr for inhalation (Advair Diskus) gabapentin 400 mg capsule 400 mg PO BID #14 caps 01/05/24 metformin 500 mg tablet 500 mg PO BID #14 tabs 01/05/24 methocarbamol 750 mg tablet 750 mg PO Q6H PRN back pain #14 01/05/24 tabs oxybutynin chloride 5 mg tablet 5 mg PO DAILY #7 tabs 01/05/24 spironolactone 25 mg tablet 25 mg PO DAILY #7 tabs 01/05/24 Allergies Allergy/AdvReac Type Severity Reaction Status Date / Time bee venom protein (honey bee) Allergy ALGY-Swell Verified 01/05/24 09:09 Lip/Tongue/Throat Review of Systems 2 Const: Denies: fever(s) or chills Card: Reports: chest pain Resp: Denies: dyspnea GI: Denies: abdominal pain : Denies: dysuria, urinary frequency or urinary urgency Musc: Denies: neck pain or back pain Skin/Breast: Denies: rash PFSH ED 2 PFSH: Medical History Obesity Diabetes Chest pain COPD (chronic obstructive pulmonary disease) Hyperlipidemia Family History Grandfather Heart attack Grandmother Heart attack Mother Heart attack Father Heart attack Social History Smoking and tobacco/nicotine status: current every day tobacco/nicotine user Alcohol intake: never Substance/Drug Use: current Physical Exam 2 Const: COMMON NORMALS: no acute distress GENERAL APPEARANCE: cooperative and comfortable ORIENTATION/CONSCIOUSNESS: Yes awake, Yes oriented to person, Yes oriented to place and Yes oriented to time HENMT: COMMON NORMALS: normocephalic, atraumatic and hearing grossly normal bilaterally HEAD & SCALP: normocephalic and atraumatic Resp: COMMON NORMALS: normal respiratory effort, No retractions, No use of accessory muscles and clear to auscultation bilaterally AUSCULTATION: clear to auscultation bilaterally Cardio: COMMON NORMALS: regular rate, regular rhythm and No murmurs present (Cardio) RATE: regular rate RHYTHM: regular rhythm GI: COMMON NORMALS: Soft to palpation and No hepatosplenomegaly present A USCULTATION: Yes normoactive bowel sounds PALPATION: Yes Soft to palpation, No Tenderness to palpation present (GI), No Guarding due to palpation present (GI) and Yes No hepatosplenomegaly present Extremity: COMMON NORMALS: normal to inspection, capillary refill normal, no clubbing, cyanosis or edema, no calf tenderness and no pedal edema Neuro: SENSORIUM/ORIENTATION: Yes oriented to person, Yes oriented to place and Yes oriented to time Skin: COMMON NORMALS: no rashes or lesions noted GENERAL SKIN EXAM: no rashes or lesions noted Course 2 Vital Signs: Vital signs: Vital Signs Temperature 97.9 F 01/05/24 09:06 Pulse Rate 65 01/05/24 13:09 Respiratory Rate 15 01/05/24 11:30 Blood Pressure 118/74 01/05/24 12:00 Pulse Oximetry 97 01/05/24 13:09 Oxygen Delivery Me thod Room Air 01/05/24 13:09 MDM - Nausea/Vomiting/Diarrhea Medical Decision Making Cardiac enzymes and EKG did not show any acute changes. She not having any further symptoms her blood pressure has been low in the low end of normal and do not think at this point recommend that she continue on the isosorbide she may actually become too hypotensive. Will discharge her home gave her 7 days of several of her medications follow-up with your primary care doctor to get more of her medications. Medical Records I reviewed the patient's medical records. Lab Data I reviewed the patient's lab results. 01/05/24 08:51 01/05/24 08:51 Radiology Impressions Chest X-Ray 01/05/24 12:23 Impression: No acute lung process is seen. Laboratory Results WBC 6.99 10^3/uL (3.29-11.43) 01/05/24 08:51 RBC 4.91 10^6/uL (3.85-5.65) 01/05/24 08:51 Hgb 14.90 g/dL (11.27-16.99) 01/05/24 08:51 Hct 44.6 % (36-47) 01/05/24 08:51 MCV 90.8 fl (85-98) 01/05/24 08:51 MCH 30.3 pg (27-33) 01/05/24 08:51 MCHC 33.4 g/dL (30-55) 01/05/24 08:51 RDW 13.8 % (12.1-15.1) 01/05/24 08:51 Plt Count 287 10^3/cmm (157-399) 01/05/24 08:51 MPV 9.6 fL (7.4-10.4) 01/05/24 08:51 Neut % (Auto) 76.3 % 01/05/24 08:51 Lymph % (Auto) 17.6 % 01/05/24 08:51 [place] % (Auto) 4.7 % 01/05/24 08:51 Eos % (Auto) 1.0 % 01/05/24 08:51 Baso % (Auto) 0.1 % 01/05/24 08:51 Neut # (Auto) 5.33 10^3/uL (1.8-7.7) 01/05/24 08:51 Lymph # (Auto) 1.2 10^3/uL (0.8-4.8) 01/05/24 08:51 Randolph # (Auto) 0.3 10^3/uL (0.2-0.9) 01/05/24 08:51 Eos # (Auto) 0.1 10^3/uL (0.0-0.8) 01/05/24 08:51 Baso # (Auto) 0.0 10^3/uL (0.0-0.1) 01/05/24 08:51 Nucleated RBC % (auto) 0 % 01/05/24 08:51 Nucleated RBCs # 0.0 /100WBC 01/05/24 08:51 Sodium 140 mmol/L (136-145) 01/05/24 08:51 Potassium 4.4 mmol/L (3.5-5.1) 01/05/24 08:51 Chloride 107 mmol/L (98-107) 01/05/24 08:51 Carbon Dioxide 20 mmol/L (22-29) L 01/05/24 08:51 Anion Gap 17.4 (5-19) 01/05/24 08:51 BUN 12 mg/dL (6-20) 01/05/24 08:51 Creatinine 0.9 mg/dL (0.5-0.9) 01/05/24 08:51 GFR Calculation 69.0 mL/min (90-130) L 01/05/24 08:51 Glucose 106 mg/dL (65-115) 01/05/24 08:51 Calculated Osmolality 290 mOsm/kg (285-295) 01/05/24 08:51 Calcium 9.0 mg/dL (8.5-10.5) 01/05/24 08:51 Total Bilirubin 0.4 mg/dL (0.15-1.2) 01/05/24 08:51 AST 10 U/L (0-32) 01/05/24 08:51 ALT 10 U/L (0-33) 01/05/24 08:51 Alkaline Phosphatase 84 U/L (35-105) 01/05/24 08:51 Troponin T Baseline < 6 ng/L (0-10) 01/05/24 08:51 Troponin T 120 Minute 6.00 ng/L (0-10) 01/05/24 10:53 Delta Troponin T 0.53372 ABS# (0-10) 01/05/24 10:53 Total Protein 7.7 g/dL (6.6-8.7) 01/05/24 08:51 Albumin 4.2 g/dL (3.5-5.2) 01/05/24 08:51 Globulin 3.5 g/dL (1.3-4.6) 01/05/24 08:51 HCG, Qual Negative (Negative) 01/05/24 08:51 Urine Color Yellow (Yellow) 01/05/24 12:16 Urine Appearance Clear (CLEAR) 01/05/24 12:16 Urine pH 6.5 (5-7) 01/05/24 12:16 Ur Specific [place] 1.009 (1.005-1.030) 01/05/24 12:16 Urine Protein Negative (Negative) 01/05/24 12:16 Urine Glucose (UA) Negative (Normal) 01/05/24 12:16 Urine Ketones 2+ (Negative) H 01/05/24 12:16 Urine Blood 2+ (Negative) A 01/05/24 12:16 Urine Nitrate Negative (Negative) 01/05/24 12:16 Urine Bilirubin Negative (Negative) 01/05/24 12:16 Urine Urobilinogen 0.2 mg/dL (Negative) 01/05/24 12:16 Ur Leukocyte Esterase Negative (Negative) 01/05/24 12:16 Urine RBC 3-5 /hpf (0-2) 01/05/24 12:16 Urine WBC 0-5 /hpf (0-5) 01/05/24 12:16 Ur Squamous Epith Cells 6-10 /hpf (0-5) 01/05/24 12:16 Amorphous Sediment Not Reportable 01/05/24 12:16 Urine Bacteria None seen /hpf (NONE) 01/05/24 12:16 Hyaline Casts 0.40 /lpf 01/05/24 12:16 All radiology interpretation(s) finalized by discharge Discharge Plan Discharge Patient Disposition: Home Clinical Impression: Atypical chest pain Condition: Stable Prescriptions: New fluoxetine 20 mg capsule 20 mg PO DAILY Qty: 10 0RF Advair Diskus 250-50 mcg/dose blister with device 1 inh inhalation BID Qty: 60 0RF gabapentin 400 mg capsule 400 mg PO BID Qty: 14 0RF metformin 500 mg tablet 500 mg PO BID Qty: 14 0RF methocarbamol 750 mg tablet 750 mg PO Q6H PRN (Reason: back pain) Qty: 14 0RF oxybutynin chloride 5 mg tablet 5 mg PO DAILY Qty: 7 0RF spironolactone 25 mg tablet 25 mg PO DAILY Qty: 7 0RF No Action methocarbamol 750 mg tablet 750 mg PO Q6H PRN (Reason: spasms) Qty: 20 0RF naproxen [Naprosyn] 500 mg tablet 500 mg PO BID PRN (Reason: pain) Qty: 20 0RF albuterol sulfate 90 mcg/actuation HFA aerosol inhaler 1 - 2 puff INHALATION Q4H PRN (Reason: Shortness Of Breath) metformin 500 mg tablet 500 mg PO BID fluticasone propion-salmeterol 250-50 mcg/dose blister with device 2 ea INHALATION BID cetirizine 10 mg tablet 10 mg PO DAILY isosorbide mononitrate 30 mg tablet extended release 24 hr 30 mg PO DAILY gabapentin 400 mg capsule 400 mg PO BID spironolactone 25 mg tablet 25 mg PO QAM oxybutynin chloride 5 mg tablet extended release 24hr 5 mg PO DAILY fluoxetine 20 mg capsule 20 mg PO DAILY fluticasone propionate 50 mcg/actuation spray,suspension 1 spray INTRANASAL DAILY nitroglycerin [Nitrostat] 0.4 mg Tablet, Sublingual 0.4 mg SUBLINGUAL Q5M PRN (Reason: Chest Pain) Rx Instructions: do not exceed 3 doses per episode Discharge Orders: Discharge ED (Routine); Ordered 01/05/24 Ordered By: Rolo García Referrals: Deion Noel MD [Primary Care Provider] - Discharge Diet: Usual diet Discharge Activity: Increase activity as tolerated Patient Instructions: Opioid Safety, Pain Management Activity Restrictions/Additional Instructions: Thank you for choosing [facility] for your healthcare needs today. It is very important that you follow up as instructed or that you return to the Emergency Department should you have concerns or if your condition changes or worsens in any way. You were seen emergency room complaining of chest discomfort. Your EKG did not show any acute changes your cardiac enzymes are negative. Your blood pressure is very well-controlled. You had a few blood pressures are actually at the low end of normal. Will hold off on restarting the isosorbide mononitrate for now. You were given prescription for 7 days of your medications. You should get more refills from your primary care doctor Stand Alone Forms: Work/School Release Coding Level of Care Code ED Sales Engineer Engineered Products for Trent Parsons
[2024-01-05 08:59] LABS: Basophils % 0.1 %; Eosinophils # 0.1 10^3/uL (0.0-0.8); Hematocrit 44.6 % (36-47); Lymphocytes # 1.2 10^3/uL (0.8-4.8); Lymphocytes % 17.6 %; Mean Corpuscular HGB Conc 33.4 g/dL (30-55); Mean Corpuscular Hemoglobin 30.3 pg (27-33); Mean Corpuscular Volume 90.8 fl (85-98); Mean Platelet Volume 9.6 fL (7.4-10.4); Monocytes # 0.3 10^3/uL (0.2-0.9); Monocytes % 4.7 %; Neutrophils # 5.33 10^3/uL (1.8-7.7); Neutrophils % 76.3 %; Nucleated Red Blood Cells % 0 %; Platelet Count 287 10^3/cmm (157-399); Red Blood Count 4.91 10^6/uL (3.85-5.65); Red Cell Distribution Width 13.8 % (12.1-15.1); White Blood Count 6.99 10^3/uL (3.29-11.43)
[2024-01-05 09:06] VITALS: BP 128/84; PULSE 92; RESP 18; TEMP 36.6; O2SAT 96; BMI 42.0
[2024-01-05 09:15] LABS: HCG, Serum Qual Negative (Negative)
[2024-01-05 09:17] LABS: Alanine Aminotransferase 10 U/L (0-33); Albumin Level 4.2 g/dL (3.5-5.2); Alkaline Phosphatase 84 U/L (35-105); Anion Gap 17.4 (5-19); Aspartate Amino Transferase 10 U/L (0-32); Blood Urea Nitrogen 12 mg/dL (6-20); Carbon Dioxide 20 mmol/L (22-29); Chloride 107 mmol/L (98-107); Creatinine Clr Calc Pharmacy 86.1093; Globulin 3.5 g/dL (1.3-4.6); Glucose 106 mg/dL (65-115); Osmolality Calculated 290 mOsm/kg (285-295); Potassium 4.4 mmol/L (3.5-5.1); Sodium 140 mmol/L (136-145); Total Bilirubin 0.4 mg/dL (0.15-1.2); Total Protein 7.7 g/dL (6.6-8.7)
[2024-01-05] MEDS: sodium chloride 0.9% 1,000 ML 999 ML IV (10:03)
[2024-01-05] MEDS: ondansetron 2 mg/ML SDV 2 mL 4 MG IVP (10:05)
[2024-01-05 10:19] VITALS: BP 121/66; PULSE 64; O2SAT 96
[2024-01-05 10:46] LABS: Troponin(5th) Baseline < 6 ng/L (0-10)
[2024-01-05 11:00] VITALS: BP 125/79; PULSE 62; O2SAT 96
--- NOTE | 2024-01-05 11:11 | PC.PHAR ---
PT STATES INSURANCE LAPSED AND IS UNABLE TO PICK PRESCRIPTIONS UP UNTIL SHE IS REINSTATED. HAS BEEN OUT FOR 2 DAYS. COULD USE A 5 DAY SUPPLY ADDED TO HOSPITAL BILL TO GET HER BY. POSSIBLE REINSTATEMENT IN NEXT COUPLE DAYS.
[2024-01-05 11:30] VITALS: BP 123/73; PULSE 88; RESP 15; O2SAT 98
[2024-01-05 11:35] LABS: Troponin 5 2HR Delta 0.00001 ABS# (0-10)
[2024-01-05 12:00] VITALS: BP 118/74; PULSE 65; O2SAT 97
--- NOTE | 2024-01-05 12:16 | ECG_ITS ---
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 Measurements Intervals [place] Rate: 63 P: 52 [place]: 132 QRS: -8 QRSD: 90 T: 45 QT: 427 QTc: 438 Interpretive Statements SINUS RHYTHM WITH SINUS ARRHYTHMIA Compared to ECG 01/05/2024 08:59:52 No significant changes Electronically Signed On 01-06-2024 7:41:24 CDT by Riley Gonzalez M.D. [id number]
--- NOTE | 2024-01-05 12:23 | XR_ITS ---
WS: [id number] Examination: XR chest 1V portable [id number] Reason for Exam: dyspnea/cough Date: January 05, 2024 Comparison: October 06, 2023 Findings: Heart not enlarged. The mediastinum is not widened. There is no pulmonary edema or pleural effusion. There is no dense consolidative change XR/XR chest 1V portable [id number] Impression: No acute lung process is seen.
[2024-01-05 12:29] LABS: Charge for UA Resulting for Rev
[2024-01-05 12:33] LABS: Bilirubin Urine Negative (Negative); Blood Urine 2+ (Negative); Glucose Urine UA Negative (Normal); Ketones Urine 2+ (Negative); Leukocyte Esterase Urine Negative (Negative); Nitrate Urine Negative (Negative); Protein Urine Negative (Negative); Specific Gravity, Urine 1.009 (1.005-1.030); Urine Appearance Clear (CLEAR); Urine Color Yellow (Yellow); Urobilinogen Urine 0.2 mg/dL (Negative); pH Urine 6.5 (5-7)
[2024-01-05 12:39] LABS: Bacteria Urine None Seen /hpf; WBC Urine 0-5 /hpf (0-5)
[2024-01-05 12:42] LABS: Add Urine Culture? No
[2024-01-05 13:09] VITALS: PULSE 65; O2SAT 97
== END 2024-01-05 13:33 | disposition home or self-care (01) ==
PROVIDERS: Emergency Provider Family Medicine; PCP Family Medicine
DX: R07.89 Other chest pain (principal); Z79.84 Long term (current) use of oral hypoglycemic drugs; Z72.0 Tobacco use; E11.9 Type 2 diabetes mellitus without complications; J44.9 Chronic obstructive pulmonary disease, unspecified; E78.5 Hyperlipidemia, unspecified
CPT/HCPCS: 36415; 71045; 80053; 81003; 81015; 84484; 84703; 85025; 93005; 96361; 96374; 99285; J2405; J7030

== ENCOUNTER 2024-07-26 08:30 | Outpatient (CLI) | payer OTHER, SELFPAY ==
--- NOTE | 2024-07-26 08:39 | MM_ITS ---
WS: [id number] BILATERAL SCREENING DIGITAL TOMOSYNTHESIS MAMMOGRAM WITH CAD HISTORY: SCREENING COMPARISON: None available. Bilateral CC and MLO views with tomosynthesis and synthetic mammography submitted. Computer aided detection analyzed. Breast composition: There are scattered areas of fibroglandular density. No suspicious masses, microcalcifications or architectural distortion. Benign calcifications in each breast. MM/MM scr BI tomosynthesis [id number] IMPRESSION: BI-RADS: 2 - Benign. FOLLOW UP: 1 Year Follow-up
== END 2024-07-26 08:31 | disposition home or self-care (01) ==
PROVIDERS: PCP Family Medicine; Visit Provider Family Medicine
DX: Z12.31 Encounter for screening mammogram for malignant neoplasm of breast (principal); R92.323 Mammographic fibroglandular density, bilateral breasts; R92.1 Mammographic calcification found on diagnostic imaging of breast
CPT/HCPCS: 77063; 77067

== ENCOUNTER → 2024-07-29 16:07 | Outpatient (BNVA) | payer OTHER, SELFPAY | PROVIDERS: PCP Family Medicine; Visit Provider Nurse Practitioner Women's Health | DX: N92.6 Irregular menstruation, unspecified (principal); Z01.419 Encounter for gynecological examination (general) (routine) without abnormal findings | CPT/HCPCS: 82306; 82670; 83001; 83002; 83036; 84146; 84402; 84403; 84443 ==

== ENCOUNTER → 2024-08-12 08:53 | Outpatient (BNVA) | payer OTHER, SELFPAY | PROVIDERS: PCP Family Medicine; Visit Provider Nurse Practitioner Women's Health | DX: N92.6 Irregular menstruation, unspecified (principal); R93.89 Abnormal findings on diagnostic imaging of other specified body structures; N83.202 Unspecified ovarian cyst, left side | CPT/HCPCS: 76830 ==

== ENCOUNTER 2024-11-09 10:43 | Day surgery (SDC) | payer OTHER, SELFPAY ==
[2024-11-09] VITALS (12 sets, daily range): BP systolic 98–138; BP diastolic 69–102; PULSE 74–105; RESP 16–17; TEMP 36.1–36.8; O2SAT 95–100; BMI 38.8
--- NOTE | 2024-11-09 00:40 | W.PM.OPSFHP ---
Same Day Surgery H&P Indication for Procedure/HPI DATE OF PROCEDURE: November 09, 2024 CHIEF COMPLAINT/INDICATIONFOR SURGICAL PROCEDURE: abnormal uterine bleeding PREOP DIAGNOSIS: abnormal uterine bleeding PLANNED PROCEDURE: Operation Date: 11/09/24 12:45 Proposed Procedures p Hysteroscopy Hysteroscopy w/ Endometrial Sampling(Not Applicable) - Rolando Hyatt MD s POSSIBLE Endometrial Poylpectomy(Not Applicable) - Rolando Hyatt MD Medications/Allergies* Home Medications ?Medication ?Instructions ?Recorded ?Confirmed ?Type cetirizine 10 mg tablet 10 mg PO DAILY 10/06/23 11/08/24 History fluticasone 250 mcg-salmeterol 50 2 ea inhalation BID 10/06/23 11/08/24 History mcg/dose blistr powdr for inhalation fluticasone propionate 50 1 spray intranasal DAILY 10/06/23 11/08/24 History mcg/actuation nasal spray,suspension isosorbide mononitrate 30 mg 30 mg PO DAILY 10/06/23 11/08/24 History tablet,extended release 24 hr nitroglycerin 0.4 mg sublingual 0.4 mg sublingual Q5M PRN Chest 10/06/23 11/08/24 History tablet (Nitrostat) Pain oxybutynin chloride 5 mg 5 mg PO DAILY 10/06/23 11/08/24 History tablet,extended release 24 hr albuterol sulfate 90 mcg/actuation 1 - 2 puff inhalation Q4H PRN 01/05/24 11/08/24 History aerosol inhaler Shortness Of Breath zolpidem 10 mg tablet 10 mg PO .BEDTIME 10/06/24 11/08/24 History Allergies/Adverse Reactions Allergy/AdvReac Type Severity Reaction Status Date / Time bee venom protein (honey bee) Allergy ALGY-Swell Verified 10/06/24 15:30 Lip/Tongue/Throat Pertinent History/Comorbid Conditions* Medical History (Updated 08/26/24 @ 11:42 by Hiwot Vang NP) Acute back pain with sciatica Asthma No pertinent past medical history .Neghx: htn, dm, thyroid, dvt/pe Obesity Diabetes Chest pain COPD (chronic obstructive pulmonary disease) Hyperlipidemia Surgical History (Updated 08/26/24 @ 11:42 by Hiwot Vang NP) Hx of tonsillectomy Hx of section History of tubal ligation Family History (Updated 07/29/24 @ 10:24 by Sommer Beltran) Father Grandfather Grandmother Mother Diabetes Mother Heart disease Mother Father Hyperlipidemia Mother Father Heart attack Grandfather Grandmother Mother Father Hypertension Mother Father Stroke Mother Social History Smoking and tobacco/nicotine status: current every day tobacco/nicotine user Alcohol intake: never Substance/Drug Use: current Pertinent Exam Findings alert, oriented x 3, clear to auscultation bilaterally and regular rate & rhythm Recommendations Surgery/Procedure today Coding Level of Care Code Acute Code for Faithg Jaqueline
--- NOTE | 2024-11-09 11:04 | ANES.PREANE2 ---
Pre-Anesthetic Assessment Height/Weight: Height 5 ft Preop Diagnosis: abnormal uterine bleeding Operation Date: 11/09/24 12:45 Proposed Procedures p Hysteroscopy Hysteroscopy w/ Endometrial Sampling(Not Applicable) - Rolando Hyatt MD s POSSIBLE Endometrial Poylpectomy(Not Applicable) - Rolando Hyatt MD Was Beta Elliott taken within 24 hours: N/A Was Clonidine taken within 24 hours: N/A Social Tobacco and No alcohol Exam alert, oriented x 3 and regular rate & rhythm Airway Submandibular: within normal limits Cervical ROM: within normal limits Mallampati: Class III Dentition: full Anesthetic Plan ASA status: 3 Anesthesia: General Other: No prior issues with anesthesia NPO since yesterday evening History of COPD Smokes nicotine and marijuana Type 2 diabetes on metformin EKG showing sinus rhythm with sinus arrhythmia Plan for general anesthesia Medications/Allergies Home Medications ?Medication ?Instructions ?Recorded ?Confirmed ?Last Taken ?Type naproxen 500 mg tablet (Naprosyn) 500 mg PO BID PRN pain #20 tabs 07/24/23 11/08/24 Unknown Rx cetirizine 10 mg tablet 10 mg PO DAILY 10/06/23 11/08/24 11/08/24 History fluticasone 250 mcg-salmeterol 50 2 ea inhalation BID 10/06/23 11/08/24 2 Days Ago History mcg/dose blistr powdr for ~01/03/24 inhalation fluticasone propionate 50 1 spray intranasal DAILY 10/06/23 11/08/24 2 Days Ago History mcg/actuation nasal ~01/03/24 spray,suspension isosorbide mononitrate 30 mg 30 mg PO DAILY 10/06/23 11/08/24 11/08/24 History tablet,extended release 24 hr nitroglycerin 0.4 mg sublingual 0.4 mg sublingual Q5M PRN Chest 10/06/23 11/08/24 Unknown History tablet (Nitrostat) Pain oxybutynin chloride 5 mg 5 mg PO DAILY 10/06/23 11/08/24 11/08/24 History tablet,extended release 24 hr albuterol sulfate 90 mcg/actuation 1 - 2 puff inhalation Q4H PRN 01/05/24 11/08/24 Unknown History aerosol inhaler Shortness Of Breath fluoxetine 20 mg capsule 20 mg PO DAILY #10 caps 08/05/1811/08/24 11/08/24 Rx gabapentin 400 mg capsule 400 mg PO BID #14 caps 01/05/24 11/08/24 11/08/24 Rx metformin 500 mg tablet 500 mg PO BID #14 tabs 01/05/24 11/08/24 11/02/24 Rx spironolactone 25 mg tablet 25 mg PO DAILY #7 tabs 01/05/24 11/08/24 11/08/24 Rx zolpidem 10 mg tablet 10 mg PO .BEDTIME 10/06/24 11/08/24 11/07/24 History Allergies Allergy/AdvReac Type Severity Reaction Status Date / Time bee venom protein (honey bee) Allergy ALGY-Swell Verified 10/06/24 15:30 Lip/Tongue/Throat PFSH Anesthesia Medical History Acute back pain with sciatica Asthma No pertinent past medical history .Neghx: htn, dm, thyroid, dvt/pe Obesity Diabetes Chest pain COPD (chronic obstructive pulmonary disease) Hyperlipidemia Surgical History Hx of tonsillectomy Hx of section History of tubal ligation Family History Grandfather Heart attack Grandmother Heart attack Mother Heart attack Heart disease Hyperlipidemia Hypertension Diabetes Stroke Father Heart attack Heart disease Hyperlipidemia Hypertension Social History Smoking and tobacco/nicotine status: current every day tobacco/nicotine user Alcohol intake: never Substance/Drug Use: current
[2024-11-09 11:14] LABS: OR HCG Qualitative Urine Negative (Negative)
[2024-11-09] MEDS: sodium chloride 0.9% 1,000 ML 30 ML IV (11:26)
--- NOTE | 2024-11-09 11:36 | W.PM.OPSUD ---
Surgery/Procedure H&P Update DATE OF PROCEDURE: November 09, 2024 DATE H&P PERFORMED: 11/09/24 H&P UPDATE INFORMATION: I have reviewed H&P completed within last 30 days, I have examined patient prior to procedure and No changes to prior documentation PREOP DIAGNOSIS: abnormal uterine bleeding PLANNED PROCEDURE: Operation Date: 11/09/24 12:45 Proposed Procedures p Hysteroscopy Hysteroscopy w/ Endometrial Sampling(Not Applicable) - Rolando Hyatt MD s POSSIBLE Endometrial Poylpectomy(Not Applicable) - Rolando Hyatt MD
--- NOTE | 2024-11-09 12:55 | P.OP_ITS ---
Operative Report Date of procedure: November 09, 2024 Pre-op diagnosis: abnormal uterine bleeding Post-op diagnosis: same Post-op findings: normal endometrial cavity No polyps / fibroids Moderate amount of endometrial tissue Procedure done: hysteroscopy Curettage of uterus Implants: none Specimens removed/disposition: endometrial curettings Surgeon: Rolando Hyatt MD Anesthesia: MAC Estimated blood loss (mL): 0 Complications: none Findings: normal endometrial cavity No polyps / fibroids Moderate amount of endometrial tissue Condition: stable Disposition: PACU Brief History: 44 y.o. with abnormal uterine bleeding Procedure: Informed consent signed. Patient was taken to the operating room. Anesthesia was induced. Patient was placed in dorsolithotomy position, prepped and draped for hysteroscopy. A bivalve speculum was placed in the vagina. The anterior lip of the cervix was grasped with a sharp-toothed tenaculum. The cervix was serially dilated with Hegar dilators. . A hysteroscope was placed into the endometrial cavity. The endometrial cavity was seen to be normal. There were no polyps or fibroids. T here was a moderate amount of endometrial tissue. The hysteroscope was then removed. Endometrial curettage was done with a sharp curette. Endometrial tissue was sent to pathology. The sharp-toothed tenaculum was removed. There was no bleeding from the endometrial cavity or cervix. The patient was then placed supine and awakened and taken to the PACU. Postop condition: stable EBL: none Sponge and instruments counts were normal x 2 Complications: none
--- NOTE | 2024-11-09 14:14 | ANE.PACU2 ---
Inpatient post-anesthesia follow up: Airway intact: Yes Vital signs: Temperature 97.5 F Pulse Rate 79 Respiratory Rate 17 Blood Pressure 98/69 Pulse Oximetry 98 Oxygen Delivery Me thod Room Air Oxygen Flow Rate 3 Fraction of Inspir ed Oxygen Hydration adequate: Yes Nausea and vomiting: No Pain level: 1 Mental status: Baseline
== END 2024-11-09 14:14 | disposition home or self-care (01) ==
PROVIDERS: Student in an Organized Health Care Education/Training Program; PCP Family Medicine; Visit Provider Obstetrics & Gynecology
PROC: 0UJD8ZZ Inspection of Uterus and Cervix, Via Natural or Artificial Opening Endoscopic (ICD-10-PCS; CPT 58555; principal; 2024-11-09 12:35)
DX: N93.8 Other specified abnormal uterine and vaginal bleeding (principal); J44.9 Chronic obstructive pulmonary disease, unspecified; E11.9 Type 2 diabetes mellitus without complications; Z79.84 Long term (current) use of oral hypoglycemic drugs; E66.9 Obesity, unspecified; Z68.38 Body mass index [BMI] 38.0-38.9, adult; E78.5 Hyperlipidemia, unspecified; F17.200 Nicotine dependence, unspecified, uncomplicated; Z98.51 Tubal ligation status
CPT/HCPCS: 58558; 81025; 88305; J1100; J1885; J2250; J2405; J2704; J3010; J7030; J9999